=== PATIENT | male | born 1995 | race Caucasian/White ===

== ENCOUNTER 2023-11-28 12:58 | Emergency (ER) | payer MEDICAID ==
[~2023-11-28] VITALS: Ht 177.8 cm; Wt 79.4 kg
[2023-11-28 13:38] VITALS: TEMP 98
[2023-11-28] MEDS ORDERED: KETOROLAC TROMETHAMINE 15 MG/ML VIAL ONE (14:43)
[2023-11-28] MEDS: KETOROLAC TROMETHAMINE 15 MG/ML VIAL IM ONE (14:46)
[2023-11-28 14:59] LABS: BASOPHILS % (AUTO) 0.5 % (0.0-2.0); EOSINOPHILS # (AUTO) 0.1 K/uL (0.0-0.7); EOSINOPHILS % (AUTO) 0.9 % (0.0-6.0); HEMATOCRIT 50 % (39-51); HEMOGLOBIN 16.6 g/dL (13.5-17.5); LYMPHOCYTES # (AUTO) 1.9 K/uL (0.8-4.8); LYMPHOCYTES % (AUTO) 33.2 % (20.0-44.0); MEAN CORPUSCULAR HEMOGLOBIN 29 PG (26.0-33.0); MEAN CORPUSCULAR HGB CONC 33 g/dl (31.0-36.0); MEAN CORPUSCULAR VOLUME 88 fL (80-96); MONOCYTES # (AUTO) 0.5 K/uL (0.1-1.30); MONOCYTES % (AUTO) 8.4 % (2.0-12.0); NEUTROPHILS # (AUTO) 3.3 K/uL (1.8-8.9); PLATELET COUNT (AUTO) 160 K/uL (150-450); RED BLOOD CELL COUNT(AUTO) 5.76 MIL/uL (4.5-6.0); RED CELL DISTRIBUTION WIDTH 13.3 % (11.5-15.0); WHITE BLOOD COUNT (AUTO) 5.8 K/uL (4.3-11.0)
[2023-11-28 15:08] LABS: CALCIUM, SERUM 9.3 mg/dL (8.5-10.1)
[2023-11-28 15:14] LABS: ALBUMIN 4.5 g/dL (3.4-5.0); BILIRUBIN,DIRECT 0.3 mg/dL (0.0-0.2); BILIRUBIN,TOTAL 3.1 mg/dL (0.2-1.0); TOTAL PROTEIN, SERUM 8.1 g/dL (6.4-8.2)
[2023-11-28] MEDS ORDERED: NAPR-1164 PO (15:27)
[2023-11-28 15:50] LABS: APPEARANCE,URINE CLEAR (CLEAR); BILIRUBIN,URINE NEGATIVE (NEGATIVE); BLOOD, URINE NEGATIVE Ery/uL (NEGATIVE); COLOR,URINE YELLOW (YELLOW); KETONES,URINE NEGATIVE (NEGATIVE); LEUKOCYTE ESTERASE ,URINE NEGATIVE (NEGATIVE); NITRITE, URINE NEGATIVE (NEGATIVE); PROTEIN,URINE NEGATIVE (NEGATIVE); UGLUCOSE NEGATIVE (NEGATIVE); UROBILINOGEN,URINE 0.2 EU/dL (0.2)
[2023-11-28 16:12] VITALS: BP 132/87; O2SAT 98
== END 2023-11-28 16:13 | disposition home or self-care (01) ==
LOC: ER 13:10
DX: R10.31 Right lower quadrant pain (principal); M79.10 Myalgia, unspecified site; M54.6 Pain in thoracic spine; E80.6 Other disorders of bilirubin metabolism
CPT/HCPCS: 99283; 96372; 85025; 80048; 83690; 80076; 81003; 36415; J1885